=== PATIENT | female | born 2000 | race Caucasian/White ===

== ENCOUNTER 2022-06-11 07:09 | Day surgery (SDC) | payer BC ==
[2022-06-10 15:13] VITALS: BMI 27.8
[2022-06-11] MEDS ORDERED: Midazolam HCl 2 mg/2 ml Vial ONE ×2 (08:07→10:15)
[2022-06-11] MEDS ORDERED: Fentanyl 250 MCG/5 ML VIAL ONE (08:07)
[2022-06-11] MEDS ORDERED: PROPOFOL 200 MG/20 ML VIAL ONE (08:37)
[2022-06-11] MEDS ORDERED: Ondansetron PF 4 MG/2 ML Vial ONE (08:37)
[2022-06-11] MEDS ORDERED: Lidocaine 1% PF 5 ML VIAL ONE (08:37)
[2022-06-11] MEDS ORDERED: Dexamethasone 20 MG/5 ML VIAL ONE (08:37)
[2022-06-11] MEDS ORDERED: Fentanyl 100 MCG/2 ML VIAL ONE ×3 (09:43→10:30)
[2022-06-11] MEDS ORDERED: Hydrocodone-Acetamin 15 ML UDCUP ONE (11:20)
== END 2022-06-11 11:50 | disposition home or self-care (01) ==
LOC: SDC 07:09
PROVIDERS: ATTEND Student in an Organized Health Care Education/Training Program
PROC: 0CTPXZZ Resection of Tonsils, External Approach (ICD-10-PCS; principal; 2022-06-11)
DX: J35.01 Chronic tonsillitis (principal); J02.9 Acute pharyngitis, unspecified; Z79.899 Other long term (current) drug therapy; Z88.5 Allergy status to narcotic agent; Z91.018 Allergy to other foods
CPT/HCPCS: 88304; J1100; J2250; J2405; J2704; J3010